=== PATIENT | male | born 1985 | race Caucasian/White ===

== ENCOUNTER 2021-06-20 14:46 | Outpatient (CLI) | payer BC, OTHER, SELFPAY ==
--- NOTE | ~2021-06-20 | CT_ITS ---
EXAMINATION: CT diagnostic chest wo con DATE: 06/20/2021 15:04 INDICATION: Multiple lung nodules, recent history of COVID 19 TECHNIQUE: Computed tomography (CT) of the chest was performed without intravenous contrast. The dose -length product (DLP) was 376.16 mGy-cm. 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 COMPARISON: None FINDINGS: Calcified pulmonary nodules and calcified right hilar lymph nodes are consistent with old g ranulomatous disease. There are patchy groundglass opacities of the lower lobes. No pleural effusion or pneumothorax is identified. No suspicious pulmonary nodule is seen. No pathologically enlarged th oracic lymph nodes are identified. The heart size is normal. IMPRESSION: 1. No suspicious pulmonary nodules identified. 2. Minimal groundglass opacities of the lower lobes, likely resolving COVID 19 pneumonia. Reviewed, dictated and finalized at location F. ING MACHINE OPERATOR
== END 2021-06-20 14:47 ==
LOC: MICIMG 14:49
PROVIDERS: Visit Provider Nurse Practitioner Family
DX: R91.8 Other nonspecific abnormal finding of lung field (principal)
CPT/HCPCS: 71250

== ENCOUNTER 2021-09-22 13:41 | Outpatient (CLI) | payer BC, OTHER, SELFPAY ==
[2021-09-22 16:04] LABS: Toxigenic C. Diff NEGATIVE (NEGATIVE)
== END 2021-09-22 13:42 | disposition home or self-care (01) ==
LOC: ANHLAB 13:44
PROVIDERS: PCP Nurse Practitioner Family; Visit Provider Nurse Practitioner Family
DX: R19.7 Diarrhea, unspecified (principal)
CPT/HCPCS: 87045; 87177; 87209; 87427; 87493

== ENCOUNTER 2021-12-15 02:43 | Day surgery (SDC) | payer BC, OTHER, SELFPAY ==
[2021-11-25 12:12] VITALS: BMI 35.9
--- NOTE | 2021-12-15 08:25 | WPDANESEPPF ---
Anes - Initial Pre Proc Eval Procedure: Operation Date: 12/15/21 11:30 Proposed Procedures p Colonoscopy - Darrion Neal MD Date/Time: 12/15/21 08:25 Surgeon: Darrion Neal MD Pre Op Diagnosis: diarrhea Patient Data Age: 36 Gender: M Height: 1.83 m Weight: 120 kg Allergies Allergy/AdvReac Type Severity Reaction Status Date / Time No Known Allergies Allergy Verified 12/15/21 10:26 Home Medications Medication Instructions Recorded Confirmed Type albuterol sulfate 90 mcg/actuation 2 inh inhalation Q6H PRN Shortness 10/22/21 12/15/21 History breath activated powder inhaler Of Breath metformin 500 mg tablet 500 mg PO BID 10/22/21 12/15/21 History semaglutide 1 mg/dose (2 mg/1.5 1 mg subcut WEEKLY 10/22/21 12/15/21 History mL) subcutaneous pen injector venlafaxine 50 mg tablet 50 mg PO DAILY 10/22/21 12/15/21 History Patient hx anesthesia problems: none Family hx anesthesia problems: none Results Review: All pre-operative results and documents have been reviewed as part of the pre-operative evaluation. [facility] Past Medical History Medical History (Updated 12/15/21 @ 10:31 by Darrion Neal MD) Allergies Anxiety Asthma Diabetes Hyperlipidemia Hypertension Obese Vasectomy planned Family History Family History (Updated 10/22/21 @ 14:59 by An Jarrett CMA) Father Asthma Hypertension Heart disease Social History Social History (Updated 10/22/21 @ 14:59 by An Jarrett CMA) Smoking status: Never smoker Second hand tobacco smoke exposure: No Alcohol intake: never Substance use: never Substance use type: does not use Living arrangements: with family Spiritual care concerns: No Anes - Eval Final PreProcedure Day of Procedure 12/15/21 08:25 Patient weight: obese Heart: regular rate and rhythm Lungs: clear to auscultation Airway: Mallampati scale class II Neurological: alert and oriented Last oral intake: >/= 8 hours ASA classification: III Emergent: no Anesthetic plan: proceed Anesthesia type and monitoring: general GIVS and standard monitoring Results Review: All pre-operative results and documents have been reviewed as part of the pre-operative evaluation. Informed Consent: The patient's anesthetic plan and its attendant risks and benefits were discussed with the patient/family/POA. Questions were solicited and answers provided to the satisfaction of the patient/family/POA.
[2021-12-15 10:27] VITALS: BP 126/85; PULSE 78; RESP 16; TEMP 36.1; O2SAT 99; BMI 35.1
--- NOTE | 2021-12-15 10:29 | PM.IMHP ---
H&P: HPI History of Present Illness Date/Time: 12/15/21 10:29 Chief Complaint: Alteration in bowel habits. Narrative: This is a 36-year-old white female patient who presents for colonoscopy. Patient has diarrhea alternating with constipation. For this reason colonoscopy is advised. Patient denies any bleeding or weight loss. Patient is somewhat overweight anticipates gastric bypass surgery. Desires to have colonoscopy prior to anticipated surgery. Patient's family history is noncontributory. No known family history of colon or rectal disease. There was discussion about possible Crohn's disease. patient has never been told he had Crohn's disease. Review of Systems Review of Systems: Review of systems noncontributory. [facility] Past Medical History Medical History (Updated 12/15/21 @ 10:31 by Darrion Neal MD) Allergies Anxiety Asthma Diabetes Hyperlipidemia Hypertension Obese Vasectomy planned Family History Family History (Updated 10/22/21 @ 14:59 by An Jarrett CMA) Father Asthma Hypertension Heart disease Social History Social History (Updated 10/22/21 @ 14:59 by An Jarrett CMA) Smoking status: Never smoker Second hand tobacco smoke exposure: No Alcohol intake: never Substance use: never Substance use type: does not use Living arrangements: with family Spiritual care concerns: No Meds Home Medications and Allergies Home Medications Medication Instructions Recorded Confirmed Type albuterol sulfate 90 mcg/actuation 2 inh inhalation Q6H PRN Shortness 10/22/21 12/15/21 History breath activated powder inhaler Of Breath metformin 500 mg tablet 500 mg PO BID 10/22/21 12/15/21 History semaglutide 1 mg/dose (2 mg/1.5 1 mg subcut WEEKLY 10/22/21 12/15/21 History mL) subcutaneous pen injector venlafaxine 50 mg tablet 50 mg PO DAILY 10/22/21 12/15/21 History Allergies Allergy/AdvReac Type Severity Reaction Status Date / Time No Known Allergies Allergy Verified 12/15/21 10:26 Exam Narrative: Physical exam reveals patient to be alert. Vital signs stable. HEENT exam is unremarkable. Patient is anicteric. Lungs are clear to auscultation and percussion. Heart is without murmur or extra sounds. Abdominal exam bowel sounds present soft nontender with no organomegaly. Digital external rectal exam is normal. Assessment and Plan Assessment and plan (1) Change in bowel habit: Code(s): R19.4 - Change in bowel habit Status: Acute Assessment and Plan: Patient has alteration in his bowel habit with diarrhea alternating with constipation most consistent with irritable bowel syndrome. Plan is for patient to try FiberCon 2 tabs p.o. b.i.d.. Patient reports this may be recannulated medications he is on diabetic medications including metformin. I have asked him he may wish to discuss this with primary care service all as he can should not hold this medication without their knowledge as his diabetes may become less well controlled. Colonoscopy has been requested to exclude organic disease will be performed as well.
[2021-12-15] MEDS: LACTATED RINGERS 1,000 ML 150 ML IV CONT (10:44)
[2021-12-15 10:46] LABS: Glucose Point of Care 224 mg/dl (65-105)
[2021-12-15 11:27] VITALS: BP 108/70; PULSE 75; RESP 18; O2SAT 96
[2021-12-15 11:37] VITALS: BP 118/75; PULSE 75; RESP 22; O2SAT 100
[2021-12-15 11:47] VITALS: BP 115/75; PULSE 73; RESP 18; O2SAT 97
== END 2021-12-15 11:55 | disposition home or self-care (01) ==
PROVIDERS: PCP Nurse Practitioner Family; Visit Provider Internal Medicine Gastroenterology
PROC: 0DJD8ZZ Inspection of Lower Intestinal Tract, Via Natural or Artificial Opening Endoscopic (ICD-10-PCS; CPT 45378; principal; 2021-12-15 11:30)
DX: R19.4 Change in bowel habit (principal); K64.8 Other hemorrhoids; J45.909 Unspecified asthma, uncomplicated; E11.9 Type 2 diabetes mellitus without complications; E78.5 Hyperlipidemia, unspecified; I10 Essential (primary) hypertension; E66.9 Obesity, unspecified; Z68.35 Body mass index [BMI] 35.0-35.9, adult; Z79.51 Long term (current) use of inhaled steroids; Z79.84 Long term (current) use of oral hypoglycemic drugs; Z79.899 Other long term (current) drug therapy
CPT/HCPCS: 45378; 82948; J2704; J7120

== ENCOUNTER 2022-01-12 14:42 | Outpatient (CLI) | payer BC, OTHER, SELFPAY ==
[2022-01-12 15:09] LABS: Hemoglobin A1C 9.5 % (<5.7)
[2022-01-12 15:13] LABS: Alanine Aminotransferase 216 U/L (6-50); Albumin Level 4.9 g/dL (3.5-5.1); Alkaline Phosphatase 71 U/L (38-126); Anion Gap 12 mmol/L (8-16); Aspartate Amino Transferase 65 U/L (17-59); Bilirubin,Total 0.4 mg/dL (0.2-1.3); Blood Urea Nitrogen 13 mg/dL (9-20); Calcium 9.9 mg/dL (8.4-10.2); Carbon Dioxide 24 mmol/L (22-30); Chloride 99 mmol/L (98-107); Estimated Glomerular Filt Rate > 60; Glucose 313 mg/dL (65-110); Potassium 4.1 mmol/L (3.4-5.0); Sodium 135 mmol/L (137-145)
== END 2022-01-12 14:43 | disposition home or self-care (01) ==
LOC: ANHLAB 14:45
PROVIDERS: PCP Nurse Practitioner Family; Visit Provider Nurse Practitioner Family
DX: E11.9 Type 2 diabetes mellitus without complications (principal)
CPT/HCPCS: 36415; 80053; 83036

== ENCOUNTER 2022-04-16 19:31 | Emergency (ER) | payer BC, OTHER, SELFPAY ==
--- NOTE | 2022-04-16 19:38 | ED.URI ---
HPI - URI/Sore Throat General Stated Complaint: cough Time Seen by Provider: 04/16/22 19:39 Source: patient Mode of arrival: ambulatory Limitations: no limitations History of Present Illness HPI Narrative: Mr. Tyler is a 37-year-old male patient presenting to clinic today with complaints of a cough x2 days. 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 He reports shortly after he developed a cough. He denies any chest pain but that has some mild shortness of breath but he also has a history of asthma. He has been using his albuterol inhaler with some relief. He denies any fever or chills. He denies having a productive cough. He is concerned that he may have a chemical burn in his lungs. MD elicited complaint: cough Related Data Home Medications Medication Instructions Recorded Confirmed albuterol sulfate 90 mcg/actuation 2 inh inhalation Q6H PRN Shortness 10/22/21 12/15/21 breath activated powder inhaler Of Breath metformin 500 mg tablet 500 mg PO BID 10/22/21 12/15/21 glipizide 5 mg tablet mg 04/16/22 metformin 500 mg tablet,extended mg PO 04/16/22 04/16/22 release 24 hr venlafaxine 150 mg mg PO 04/16/22 capsule,extended release 24 hr Allergies Allergy/AdvReac Type Severity Reaction Status Date / Time No Known Allergies Allergy Verified 04/16/22 19:47 Review of Systems Review of Systems: Pertinent positives per HPI. Patient denies any fever, chills, rash, headache, visual changes, dizziness, , shortness of breath, chest pain, palpitations, nausea, vomiting, diarrhea, constipation, abdominal pain, or any urinary issues. [facility] Past Medical History Medical History Allergies Anxiety Asthma Diabetes Hyperlipidemia Hypertension IBS (irritable bowel syndrome) Obese Obesity Vasectomy planned Family History Family History Father Asthma Hypertension Heart disease Social History Social History Smoking status: Never smoker Second hand tobacco smoke exposure: No Alcohol intake: never Substance use: never Substance use type: does not use Spiritual care concerns: No Comments At the time of my signature, I reviewed and agree with the nursing past medical, surgical, social, and family history. There is no relevant family history pertinent to the patient complaint. Exam Narrative: General: Well-developed, well nourished, in no apparent distress Head: Normocephalic, atraumatic Eyes: Pupils equally round and reactive to light bilaterally, EOM intact, sclera and conjunctive clear, no discharge, lids normal Ears: TMs intact and clear, ear canals clear, no drainage, grossly hearing normal. Nose: Nares patent, no discharge, no inflammation, no sinus tenderness. Mouth: Oral pharynx without lesions or masses, good dentition, MMM. Neck: Supple, trachea midline, no enlargement of anterior or posterior cervical nodes, no thyroid masses or goiter palpable. Cardio: Regular rate and rhythm, s1 and s2 normal, no murmur appreciated. Resp: Diminished lung sounds in the bases otherwise clear, no rhonchi, rales, wheezing or rubs Course Course Emergency Course: Portions of this record may have been created with voice recognition software. Level of Care: Express Care Visit Vital Signs Vital signs: Vital signs reviewed MDM - URI/Sore Throat MDM Narrative Medical decision making narrative: At the time of visit patient is resting comfortably on the exam table. Will place patient on a prescription for some prednisone just in case he does have some inflammation in his lungs. Supportive measures were discussed with the patient he voiced understanding of discharge instructions and agrees to treatment plan. Differential Diagnosis Differential diagnos
[2022-04-16 19:41] VITALS: BP 140/85; PULSE 95; RESP 16; TEMP 37; O2SAT 98
== END 2022-04-16 19:49 | disposition home or self-care (01) ==
PROVIDERS: Emergency Provider Nurse Practitioner Family; PCP Nurse Practitioner Family
DX: R05.1 Acute cough (principal); J45.909 Unspecified asthma, uncomplicated; E11.9 Type 2 diabetes mellitus without complications; Z79.84 Long term (current) use of oral hypoglycemic drugs; E78.5 Hyperlipidemia, unspecified; I10 Essential (primary) hypertension; E66.9 Obesity, unspecified; Z68.34 Body mass index [BMI] 34.0-34.9, adult; F41.9 Anxiety disorder, unspecified
CPT/HCPCS: 99213; G0463

== ENCOUNTER 2022-07-01 16:53 | Outpatient (CLI) | payer BC, OTHER, SELFPAY ==
--- NOTE | ~2022-07-01 | MR_ITS ---
EXAMINATION: MR shoulder RT wo con DATE: 07/01/2022 17:57 INDICATION: Right Shoulder pain/weakness . TECHNIQUE: Magnetic resonance imaging (MRI) of the shoulder was performed without intravenous contras t. Sequences included axial PD-weighted FS FSE, coronal oblique PD-weighted FS FSE and T2-weighted FS FSE, and sagittal oblique T2-weighted FS FSE and T1-weighted FSE. COMPARISON: None. FINDINGS: Coracoacromial arch: Minimal anterior downsloping of the type I/II acromion. Mild AC joint hypertrophy. Minimal acromial t ip enthesopathy. Rotator cuff: Mild abnormal signal in the distal supraspinatus and infraspinous tendons at the critical zone. Mild bursal sided fraying. Small focal abnormal signal at the musculotendinous junction in the infraspinat us. The subscapularis and teres minor are intact. Biceps tendon and glenoid labrum: Long head of biceps tendon is intact. Superior labral tear extending anterior to posterior, with exte nsion into a perilabral cyst in the spinal glenoid notch. No concerning muscle atrophy. Fluid: Small subacromial subdeltoid fluid collection. Bones/cartilage: No suspicious focal or diffuse marrow signal IMPRESSION: 1. Mild osseous outlet compromise, with subacromial subdeltoid bursitis. 2. Mild intrasubstance type tear of the infraspinatus at the musculotendinous junction. Mild superior cuff tendinopathy. 2. Extensive SLAP tear. Perilabral cyst in the spinal glenoid notch. Reviewed, dictated and finalized at location K. ELLATION CLERK IMPRESSION: 1. Mild osseous outlet compromise, with subacromial subdeltoid bursitis. 2. Mild intrasubstance type tear of the infraspinatus at the musculotendinous j unction. Mild superior cuff tendinopathy. 2. Extensive SLAP tear. Perilabral cyst in the spinal glenoid notch.
== END 2022-07-01 16:54 ==
LOC: MICIMG 16:55
PROVIDERS: PCP Orthopaedic Surgery; Visit Provider Orthopaedic Surgery
DX: S43.431A Superior glenoid labrum lesion of right shoulder, initial encounter (principal); X58.XXXA Exposure to other specified factors, initial encounter
CPT/HCPCS: 73221

== ENCOUNTER 2023-04-15 09:23 | Outpatient (CLI) | payer BC, OTHER, SELFPAY ==
[2023-04-15 10:28] LABS: Alanine Aminotransferase 83 U/L (6-50); Albumin Level 4.4 g/dL (3.5-5.1); Alkaline Phosphatase 73 U/L (38-126); Anion Gap 9 mmol/L (8-16); Aspartate Amino Transferase 37 U/L (17-59); Bilirubin,Total 0.6 mg/dL (0.2-1.3); Blood Urea Nitrogen 19 mg/dL (9-20); Calcium 9.5 mg/dL (8.4-10.2); Carbon Dioxide 24 mmol/L (22-30); Chloride 105 mmol/L (98-107); Cholesterol 267 mg/dL (0-200); Estimated Glomerular Filt Rate > 60; Glucose 302 mg/dL (65-110); HDL Direct 34 mg/dL; Potassium 4.2 mmol/L (3.4-5.0); Sodium 138 mmol/L (137-145); Triglycerides 413 mg/dL (<150)
[2023-04-15 10:33] LABS: Hemoglobin A1C 9.6 % (<5.7)
[2023-04-15 10:40] LABS: LDL Cholesterol Direct 156 mg/dL
== END 2023-04-15 09:24 | disposition home or self-care (01) ==
LOC: ANHLAB 09:26
PROVIDERS: PCP Orthopaedic Surgery; Visit Provider Nurse Practitioner Family
DX: E78.5 Hyperlipidemia, unspecified (principal); E11.9 Type 2 diabetes mellitus without complications
CPT/HCPCS: 36415; 80053; 80061; 83036

== ENCOUNTER 2024-10-14 10:39 | Outpatient (CLI) | payer BC, SELFPAY ==
--- OUTSIDE RECORDS SUMMARY | 2024-10-14 10:44 | XMS_ITS | Clinical Summary ---
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 Gender Identity Not on file Sexual Orientation Not on file Plan of Treatment Health Maintenance Due Date Last Done Comments Hepatitis C Virus (HCV) Screening 1985 TdaP Immunization 1985 Hepatitis B Immunization (1 of 3 - 19+ 3-dose series) 02/04/2004 Influenza Immunization (#1) 2024 SARS-COV-2 Immunization ( season) 2024 Respiratory Syncytial Virus (RSV) Immunization (Adult) (1 - 1-dose 75+ series) 02/04/2060 Meningococcal Immunization (ACWY) Aged Out No longer eligible based on patient's age to complete this topic Pneumococcal Immunization Combined Aged Out No longer eligible based on patient's age to complete this topic Rotavirus Immunization Aged Out No lo nger eligible based on patient's age to complete this topic
--- OUTSIDE RECORDS SUMMARY | 2024-10-14 10:44 | XMS_ITS | Data Portability ---
Author Organization [facility] Gutier[facility] SIM[facility] Esther Allen Address [address] [place] [address] Assessment No assessment recorded. Plan of Treatment Reminders Order Date Submit Date Provider Last Modified By Organization Details Last Modified Time Details Appointments None recorded. Lab vitamin D, 25-hydroxy , total, serum 2014 015 nikkaer [facility], [address], [address], [place], [address], 5 15:09:29 hepatic function panel, serum 2014 015 francieer [facility], [address], [address], [place], [address], 5 15:09:28 lipid panel, serum 2014 015 albertoer [facility], [address] [place] [address], [address], [place], [address], 5 15:09:29 vitamin D, 25-hydroxy , total, serum 2014 015 NELL [facility], [address] [facility] [address], [place], [address], 5 06:19:03 TSH, serum or plasma 2014 015 anaerson [facility], [address], [place], [address], 15:34:21 Referral None recorded. Procedures None recorded. Surgeries None recorded. Imaging None recorded. Medication Orders Singulair 10 mg tablet 2014 [facility], [address] [place] [address], [address], 5 11:27:36 albuterol sulfate HFA 90 mcg/actuat ion aerosol inhaler 2014 [facility], [address] [place] [address], [address], 5 11:27:37 Advair Diskus 250 mcg-50 mcg/dose powder for inhalation 2014 [facility], [address] [place] [address], [address], 11:27:37 Advair Diskus 250 mcg-50 mcg/dose powder for inhalation 2014 [facility] Not available 11:27:37 lisinopril 20 mg tablet 2014 [facility] [address], [address] [facility], [place], [address], 11:27:36 Advair Diskus 250 mcg-50 mcg/dose powder for inhalation 2014 [facility], [address] [place] [address], [address], 5 16:46:20 albuterol sulfate HFA 90 mcg/actuat ion aerosol inhaler 2014 015 [facility], [address] [place] [address], [address], 5 16:46:22 Singulair 10 mg tablet 2014 [facility], [address] [place] [address], [address], 5 16:46:19 atorvastat in 40 mg tablet 2014 015 INTERFACE [facility], [address] [place] [address], [address], 5 16:46:16 Singulair 10 mg tablet 2014 015 INTERFACE [facility], [address] [place] [address], [address], 5 15:35:07 Asmanex Twisthaler 220 mcg/actuat ion(60 doses) breath activated inhalr 2014 015 INTERFACE [facility], [address] [place] [address], [address], 5 15:35:09 albuterol sulfate HFA 90 mcg/actuat ion aerosol inhaler 2014 015 [facility], [address] [place] [address], [address], 5 15:35:10 Patient TargetsNo targets recorded. Patient Instructions Encounter Date Encounter Id Patient Instructions Last Modified By Organization Details Last Modified Time 03/18/2015 [id number] Patient is finished with his job in 3 days and then will just be in school - he is hoping that his stress level with decrease Patient declined flu vaccine eewig Not available 03/18/2015 11:27:37 Reason for Referral None Reported. Results Created Date Observation Date Name Description Value Unit Range Abnormal Flag Note LastModifiedBy Organization Detail LastModifiedTime 07/16/19 15 07/17/2014 TSH, serum or plasm a TSH 3.570 uIU/m L 0.450- 4.500 Not Available [facility] ([facility]) [address] [facility], [place], [address], 07/17/2014 07:24:43 12/04/19 15 12/04/2014 vitam in D, 25-hy droxy , total , serum vitamin D, 25-hydroxy 16.9 NG/mL 30.0-1 00.0 low VITAM IN D DEFIC IENCY HAS BEEN DEFIN ED BY THE INSTI T[facility] OF MEDIC INE AND AN ENDOC RINE SOCIE TY PRACT ICE GUIDE LINE A LEVEL OF SERUM 25-OH VITAM IN D LESS THAN 20 NG/ML (1,2) . THE ENDOC RINE SOCIE TY WENT ON TO FURTH ER DEFIN E VITAM IN D INSUF FICIE NCY A LEVEL BETWE EN 21 AND 29 NG/ML (2). 1. IOM ([facility] IT[facility] OF MEDIC INE). 2010. DIETA RY REFER ENCE INTAK ES FOR CALCI UM AND D. [facility] DC: [facility] . 2. CHARLES K MF, BINBRIA EY NC, BISCH OFF-F ERRAR I RG, ET AL. EVALU ATION , TREAT MENT, AND PREVE NTION OF VITAM IN D DEFIC IENCY : AN ENDOC RINE SOCIE TY CLINI NILO PRACT ICE GUIDE LINE. JCEM. 2010; 96(7) :1911 -30. Not Available [facility] ([facility]) [address] [facility], [place], [address], 12/04/2014 06:19:03 Result Notes None recorded. 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 - [facility] 5 15:17:42 Upper respiratory infection 53416480 Active BARBI Leahy Attn: Accounting ,[address] [facility], [place], [address] , [facility] - S[facility] 5 15:34:20 Essential hypertension 23042543 Active Kristen Gonzalez PA-C Attn: Accounting ,[address] [facility], [place], [address] , [facility] - [facility] 5 11:27:36 Problem Notes None recorded. Procedures Surgical History Date Name Laterality Status Provider Name and Address Organization Details Recorded Time Appendectomy completed Ezequiel Ward CT - [facility] 07/16/2014 15:09:04 Imaging Results None recorded. Procedure Notes None recorded. Medical Equipment None Reported. Allergies No known drug allergies Medications Name Sig Start Date Stop Date Status Note LastModified by Organization Details LastModified Time Singulair 10 mg tablet Take 1 tablet every day by oral route in the evening. 2014 active Not Available Not Available Not Avai lable atorvastatin 40 mg tablet Take 1 tablet every day by oral route in the evening. 2014 active 340b Not Available Not Available Not Avai lable lisinopril 20 mg tablet Take 1 tablet every day by oral route. 2014 active Not Available Not Available Not Avai lable Advair Diskus 250 mcg-50 mcg/dose powder for inhalation Inhale 1 puff twice a day by inhalation route. 2014 active 340b Not Available Not Available Not Avai lable albuterol sulfate HFA 90 mcg/actuatio n aerosol inhaler Inhale 2 puffs every 4-6 hours by inhalation route as needed. 2014 active Not Available Not Available Not Avai lable Vitamin D2 1,250 mcg (50,000 unit) capsule Take 1 capsule every week by oral route. 2013 active Not Available Not Available Not Avai lable Asmanex Twisthaler 220 mcg/actuatio n(60 doses) breath activated inhalr Inhale 1 puff every day by inhalation route at bedtime. 2014 active Not Available Not Available Not Avai lable Vitals Date Recorded Respiratory rate Body weight Oxygen saturation Oxygen saturation in Arterial blood by Pulse oximetry Body height Body mass index (BMI) Heart rate Body temperature Systolic blood pressure Diastolic blood pressure Provider Name and Address Organization Details Last Updated DateTime 5 20 /min 356817. 82347 g 97 % 97 % 182.88 cm 35.7 kg/m2 96 /min 98.2 [degF] 132 mm[Hg] 92 mm[Hg] Elaine Krishnamurthy LPN [facility] 5 16:35:19 Date Recorded Respiratory rate Body weight Oxygen saturation Oxygen saturation in Arterial blood by Pulse oximetry Body height Body mass index (BMI) Body temperature Heart rate Systolic blood pressure Diastolic blood pressure Provider Name and Address Organization Details Last Updated DateTime 5 20 /min 411048. 387966 g 98 % 98 % 182.88 cm 36.8 kg/m2 97.4 [degF] 65 /min 140 mm[Hg] 94 mm[Hg] [facility] 5 09:29:04 Date Recorded Respiratory rate Oxygen saturation Oxygen saturation in Arterial blood by Pulse oximetry Body weight Heart rate Body mass index (BMI) Body height Body temperature Systolic blood pressure Diastolic blood pressure Provider Name and Address Organization Details Last Updated DateTime 5 20 /min 97 % 97 % 879627. 101606 g 80 /min 36.2 kg/m2 182.88 cm 97.3 [degF] 126 mm[Hg] 84 mm[Hg] Williams Ward [facility] 5 15:09:04 Social History Question Answer Notes LastModified by Organizat ion Details LastModified Time Tobacco Smoking Status Never Smoker Elaine Krishnamurthy LPN [facility], [facility] 12/03/2014 16:35:19 What Is Your Level Of Alcohol Consumption? None Information not available 07/16/2014 What Is Your Level Of Caffeine Consumption? Occasional Information not available 07/16/2014 Are You Currently Employed? Yes Information not available 12/03/2014 What Type Of Diet Are You Following? REGULAR Information not available 12/03/2014 Which Illicit Or Recreational Drugs Have You Used? No Information not available 12/03/2014 Education 2 Year College Informatio n not available 12/03/2014 What Is Your Occupation? [employer] Information not available 12/03/2014 Are There Any Guns Present In Your Home? Yes Information not available 12/03/2014 Hard Of Hearing Or Deaf In One Or Both Ears? No Information not available 12/03/2014 Legally Blind In One Or Both Eyes? No Information no t available 12/03/2014 Live Alone Or With Others? With Others Information not available 07/16/2014 How Many Children Do You Have? 2 Information not available 12/03/2014 Do You Use Protection During Sex? No Information not available 12/03/2014 Seat Belts Used Routinely No Information not available 12/03/2014 Are You Sexually Active? Yes Information not available 12/03/2014 Smoke Alarm In Home Yes Information not available 12/03/2014 Are You Passively Exposed To Smoke? No Information no t available 12/03/2014 General Stress Level Low Information not available 12/03/2014 Do You Use Sunscreen Routinely? No Information not available 12/03/2014 Sex: Unknown Functional Status Question Answer Note LastModified by Organization D etails LastModified Time Are you able to care for yourself? Yes Information not available 07/16/2014 What is your exercise level? Moderate Information not available 12/03/2014 Mental Status None recorded. Family History Relationship Description Onset Age of this Age Resolved Age Notes LastModified by Organization Details LastModified Time Mother Alive [email or web address] Not available 1 09:29:05 Father Alive [email or web address] Not available 1 09:29:05 Medical History Condition Response Acid Reflux (GERD) Y Asthma Y Allergies Y Past Encounters Encounter ID Performer Location Encounter Start Date Encounter Closed Date Diagnosis/Indication Diagnosis SNOMED-CT Code Diagnosis ICD10 Code Diagnosis Note [id number] Christiana Pleitez NP-C Matilda clinton [address] [place] [address] 07/16/2014 15:03:15 07/16/2014 15:35:05 Hyperlipidemia 15584193 Reinforced need to start Atorvastat in based on LDL 203 Disorder of vitamin D 288301043 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 Asthma 730290493 Obesity 429726414 Upper resp iratory infection 01358824 Offered Flonase, but patient prefers to continue OTC tx and will call office if no improvemen t in 1 week [id number] MD Brown Alexander (Adult Med) [address] [place] [address] 12/03/2014 16:14:24 12/03/2014 16:46:43 Asthma 866171945 Hyperlipidemia 23143048 Disorder of vitamin D 682114844 Abnormal b lood pressure 61428520 [id number] MD Brown Alexander (Adult Med) [address] [place] [phone] 03/18/2015 09:01:08 03/18/2015 09:43:10 Hyperlipidemia 96401764 E78.5 Disorder of vitamin D 38 5857154 E55.9 Asthma 860540197 J45.90 9 Essential hypertension 79429908 I10 RTC in 3 weeks - patient will return once he has insurance for a BP check - he will begin medication States that he is very stressed at home He has a BP cuff at home and will monitor his BP Obesity 867225195 E66.9 States at home his scale says that he has lost 3lbs since his last visit - he currently is wearing steel toed boots and heavy clothing for work Health Concerns Section Related Observation LastModified by Organization Detai ls LastModified Time None Recorded Concern Status LastModified by Organization Details LastModified Time None Recorded Advance Directives Directive None Recorded Payers Encounter Date Sequence Insurance Name Policy Number Policy Domingo Covered Member ID Domingo Member ID Guarantor Name 12/03/2014 SLIDING FEE SCHEDULE - DISCOUNT Erick Tyler 03/18/2015 SLIDING FEE SCHEDULE - DISCOUNT Erick Tyler
--- OUTSIDE RECORDS SUMMARY | 2024-10-14 10:44 | XMS_ITS | Referral Summary ---
Author Organization [facility] Address [address] [place] [address] Care Team Providers Care Leadlighter Name Role Phone Tisha Koch Lizbeth COLORED LEATHER SETTER Primary Care Provider + Allergies No known active allergies Medications venlafaxine XR (EFFEXOR-XR) 150 mg 24 hr capsuleIndicatio ns:Generalized anxiety disorder Take 1 capsule (150 mg total) by mouth daily 30 capsule 1 Active Additional Information Patient taking differently:150 mg oralDaily before breakfast, Indications: Anxiety with Depression, Informant: Self, Reported on 07/22/2022 metFORMIN XR (GLUCOPHAGE XR) 500 mg 24 hr tabletIndication s:type 2 diabetes mellitus Take 500 mg by mouth 2 (two) times a day 2 Active semaglutide (Ozempic) 1 mg/dose (4 mg/3 mL) pen injector injectionIndicat ions:type 2 diabetes mellitus Inject 1 mg under the skin once a week Mondays Active albuterol HFA (PROVENTIL HFA,VENTOLIN HFA,PROAIR HFA) 90 mcg/actuation inhalerIndicatio ns:Mild intermittent asthma without complication Inhale 2 puffs every 4 hours as needed for wheezing 8.5 g 2 Active Additional Information Patient taking differently: 2 puff inhalation Every 4 hours PRN, wheezing, shortness of breath, Inhale 2 puffs every 4 hours as needed for wheezing, Informant: Self, Reported on 07/22/2022 glipiZIDE (GLUCOTROL) 5 mg tabletIndication s:type 2 diabetes mellitus Take 5 mg by mouth 2 (two) times a day before breakfast and lunch 3 Active meloxicam (MOBIC) 15 mg tablet Take 1 tablet (15 mg total) by mouth daily 30 tablet 1 3 Active Active Problems Problem Noted Date Diagnosed Date Tear of right glenoid labrum 07/21/2022 Overview (07/21/2022): Added automatically from request for surgery [id number] Biceps tendinitis of right upper extremity 07/21 Overview (07/21/2022): Added automatically from request for surgery [id number] Primary hypertension 11/20/2021 Type 2 diabetes mellitus wit hout complication, without long-term current use of insulin 11/20/2021 Morbid obesity 11/20/2021 Other specified anxiety disorders 11/20/2021 BMI 35.0-35.9,adult 10/09/2021 Uncontrolled type 2 diabetes mellitus with hyper glycemia 12/19/2019 Assessment & Plan (01/30/2020 4:29 PM CDT): Overall Condition Chronic Condition: Uncontrolled. Treatment: New Medication: Cont. metformin. start Invokana. Follow up in 3 months Assessment & Plan (12/19/2019 3:25 PM CDT): Overall Condition New Diagnosis. Treatment: New Medication: Start Metformin 1000mg. half tablet BID for 1 week, then go up to full pill. , Lab: Diabetic Panel. , Referral: Optho and [employer] and Recommended Therapeutic Lifestyle Modification Follow up in 1 month Encounter for annual health examination 12/19/19 20 Anxiety with somatization 08/28/2019 Mixed dyslipidemia 08/28/2019 Abnormal liver enzymes 12/23/2018 Asthma complicating , antepartum 2018 Excess or deficiency of vitamin D 12/23/2018 Hyperlipidemia 12/23/2018 Generalized anxiety disorder 04/22/2017 Mild intermittent asthma without complication New daily persistent headache 04/22/2017 Arthralgia of hip 05/27/2009 Resolved Problems Problem Noted Date Diagnosed Date Resolved Date Class 2 severe obesity due t o excess calories with serious comorbidity and body mass index (BMI) of 36.0 to 36.9 in adult 05/03/2017 Assessment & Plan (01/30/2020 4:31 PM CDT): Overall Condition Chronic Condition: Uncontrolled. Treatment: New Medication: Restart Phentermine. Follow up in 3 months Social History Tobacco Use Types Packs/Day Years Used Date Smoking Tobacco: Never Smokeless Tobacco: Never Alcohol Use Standard Drinks/Week Comments Not Currently 0 (1 standard drink = 0.6 oz pur e alcohol) AUDIT-C Answer Date Recorded Q1: How often do you have a drink containing alc ohol? 2-4 times a month 08/11/2022 Q2: How many drinks containi ng alcohol do you have on a typical day when you are drinking? 1 or 2 08/11/2022 Q3: How often do you have si x or more drinks on one occasion? Never 08/11/2022 PHQ-2 Answer Date Recorded PHQ-2 Total Score (If total score is 3 or more points, staff should administer the PHQ-9) 0 12/19/2019 Personal Safety Answer Date Recorded Getting School Help Needed Denies 07/31 Sex and Gender Information Value Date Recorded Sex Assigned at Not on file Legal Sex Male 4:34 AM DIVERSIFIED CROPS SUPERVISOR Gender Identity Male 09/12/2021 3:59 PM CDT Sexual Orientation Straight 09/12/2021 3: 59 PM CDT Last Filed Vital Signs Vital Sign Reading Time Taken Comments Blood Pressure 144/124 08/11/2022 9:45 AM DIVERSIFIED CROPS SUPERVISOR pt moving during measurement, retaken 137/88 Pulse 76 08/11/2022 9:45 AM DIVERSIFIED CROPS SUPERVISOR Temperature 36.4 C (97.5 F) 08/11/2022 9:25 AM DIVERSIFIED CROPS SUPERVISOR Respiratory Rate 17 08/11/2022 9:45 AM DIVERSIFIED CROPS SUPERVISOR Oxygen Saturation 93% 08/11/2022 9:4 5 AM DIVERSIFIED CROPS SUPERVISOR Inhaled Oxygen Concentration - - Weight 120.4 kg (265 lb 6.4 oz) 08/11/2022 5:46 AM DIVERSIFIED CROPS SUPERVISOR Height 182.9 cm (6' 0.01 ) 08/11/2022 5 :46 AM DIVERSIFIED CROPS SUPERVISOR Body Mass Index 35.99 08/11/2022 5:46 AM DIVERSIFIED CROPS SUPERVISOR Plan of Treatment Not on file Medical Devices Implanted Type Area Dry Janitor Device Identifier Shelf Expiration Date Model / Serial / Lot [employer] Pushlock 2.9mm 15.5mm Anderson Suture Biocomposite Sterile [id number] - [id number] Implanted:Qty: 1 on 08/11/2022 by Domingo Wise MD at [facility] Right: Shoulder [employer] 04/06/2026 AR-1923BC / / [id number] [employer] Pushlock 2.9mm 15.5mm Anderson Suture Biocomposite Sterile [id number] - [id number] Implanted:Qty: 1 on 08/11/2022 by Domingo Wise MD at [facility] [place] Right: Shoulder [employer] 04/06/2026 AR-1923BC / / [id number] [employer] Pushlock 2.9mm 15.5mm Anderson Suture Biocomposite Sterile Ar-1923bc - [id number] Implanted:Qty: 1 on 08/11/2022 by Domingo Wise MD at [facility] [place] Right: Shoulder [employer] 04/06/2026 AR-1923BC / / [id number] Procedures Procedure Name Priority Date/Time Associated Diagnosis Comments HEMOGLOBIN A1C Routine 08/10/2022 9:28 AM DIVERSIFIED CROPS SUPERVISOR Right shoulder pain, unspecified chronicity EGFR Add On 04/17/2022 4:45 PM DIVERSIFIED CROPS SUPERVISOR LIPID PANEL Routine 10/09/2021 5:56 PM CDT Morbid obesity (HCC) Type 2 diabetes mellitus without complication, without long-term current use of insulin (HCC) Primary hypertension Mixed hyperlipidemia HEPATITIS PANEL, ACUTE Routine 08/07/2016 10:22 AM DIVERSIFIED CROPS SUPERVISOR from Last 3 Months or Most Recently Relevant to Health Maintenance Results * (ABNORMAL) Hemoglobin A1c (08/10/2022 9:28 AM DIVERSIFIED CROPS SUPERVISOR) Hgb A1C 7.4(H) 4.0 - 5.6 % [facility] Comment:Testing performed by : [facility], [address] [place] [address], [place]., [address] Estimated Average Glucose 166 mg/dL [facility] Comment: The ADA recommends reporting an estimated Average Glucose (eAG) with all Hemoglobin A1c results using the equation derived from a study of 507 normal and diabetic adults. Minority populations were underrepresented and children were not included. (Diabetes Care 31:7623-2887, 2008). The eAG is not equivalent to a fasting glucose. Testing performed by: [address] [address] Blood 08/10/2022 9:28 AM DIVERSIFIED CROPS SUPERVISOR 08/10/2022 9:43 AM DIVERSIFIED CROPS SUPERVISOR us Domingo Wise MD LAB BLOOD ORDERABLES Final Result [id number] [facility] [place] [address] * eGFR (04/17/2022 4:45 PM DIVERSIFIED CROPS SUPERVISOR) eGFR 80 mL/min/1. 73 m2 [facility] Comment: Interpretive Data Reference Interval Normal >/= 90 mL/min/1.73m2 Mildly decreased* 60 - 89 mL/min/1.73m2 Mildly to moderately decreased 45 - 59 mL/min/1.73m2 Moderately to severely decreased 30 - 44 mL/min/1.73m2 Severely decreased 15 - 29 mL/min/1.73m2 Kidney Failure < 15 mL/min/1.73m2 *Relative to young adult level Estimated glomerular filtration rate is determined by the 2020 CKD-EPI equation recommended by the National Kidney Foundation (A Unifying Approach to GFR Estimation: Recommendations of the NKF-ASK Task Force on Reassessing the Inclusion of Race in Diagnosing Kidney Disease, JASN 202). The CKD-EPI equation should not be used for patients with unstable renal function and has not been validated in children and those over 70. Current interpretive data was last reviewed 2021. Testing performed by: [facility], [address] [place] [address]., [address] Blood 04/17/2022 4:45 PM DIVERSIFIED CROPS SUPERVISOR 04/17/2022 5:26 PM DIVERSIFIED CROPS SUPERVISOR us Tea GAVIN LAB BLOOD ORDERABLES Final Result [facility] [address] [facility] [place] [address] * (ABNORMAL) Lipid panel (10/09/2021 5:56 PM CDT) Cholesterol 283(H) 30 - 199 mg/dL [facility] Comment: Interpretive Data Ages < or = 19 years Acceptable: <170 mg/dL Borderline high: 170-199 mg/dL High: >or= 200 mg/dL Ages > or = 20 years Desirable: <200 mg/dL Borderline high: 200-239 mg/dL High: >or= 240 mg/dL Literature References: 1. Expert Panel on Integrated Guidelines for Cardiovascular Health and Risk Reduction in Children and Adolescents. Pediatrics 2011;128:S213 2. NCEP Expert Panel. Circulation 2004;110:227 Current Interpretive Data was last revised on 2018. Testing performed by: [address] [address] Triglycerides 603(H) <=149 mg/dL [facility] Comment: Interpretive Data Ages < or = 9 years Acceptable: <75 mg/dL Borderline high: 75-99 mg/dL High: >or= 100 mg/dL Ages 10 to 20 years Acceptable: <90 mg/dL Borderline high: 90-129 mg/dL High: >or= 130 mg/dL Ages > or = 20 years Desirable: <150 mg/dL Borderline high: 150-199 mg/dL High: 200-499 mg/dL Very high: >or= 499 mg/dL Literature References: 1. Expert Panel on Integrated Guidelines for Cardiovascular Health and Risk Reduction in Children and Adolescents. Pediatrics 2011;128:S213 2. NCEP Expert Panel. Circulation 2004;110:227 Current Interpretive Data was last revised on 2018. Testing performed by: [address] [address] HDL 37(L) >=40 mg/dL [facility] Comment: Interpretive Data Ages < or = 19 years Acceptable: >45 mg/dL Borderline low: 40-45 mg/dL Low: <40 mg/dL Ages > or = 20 years Desirable: >or= 60 mg/dL Low: <40 mg/dL Literature References: 1. Expert Panel on Integrated Guidelines for Cardiovascular Health and Risk Reduction in Children and Adolescents. Pediatrics 2011;128:S213 2. NCEP Expert Panel. Circulation 2004;110:227 Current Interpretive Data was last revised on 2018. Testing performed by: [address] [address] LDL, calculated See Comment <=129 mg/dL [facility] Comment: Unable to calculate due to elevated Triglycerides. Interpretive Data Ages < or = 19 years Acceptable: <110 mg/dL Borderline high: 110-129 mg/dL High: >or= 130 mg/dL Ages > or = 20 years Optimal: <100 mg/dL Near optimal: 100-129 mg/dL Borderline high: 130-159 mg/dL High: >160 mg/dL Literature References: 1. Expert Panel on Integrated Guidelines for Cardiovascular Health and Risk Reduction in Children and Adolescents. Pediatrics 2011;128:S213 2. NCEP Expert Panel. Circulation 2004;110:227 Current Interpretive Data was last revised on 2018. Testing performed by: [address] [address] Non-HDL Cholesterol 246 mg/dL [facility] Comment: Interpretive Data Ages < or = 19 years Acceptable: <120 mg/dL Borderline high: 120-144 mg/dL High: >145 mg/dL Ages > or = 20 years When triglycerides are >200 mg/dL, Non-HDL cholesterol is a secondary target of therapy with treatment goals that are 30 mg/dL greater than the LDL cholesterol target. Literature References: 1. Expert Panel on Integrated Guidelines for Cardiovascular Health and Risk Reduction in Children and Adolescents. Pediatrics 2011;128:S213 2. NCEP Expert Panel. Circulation 2004;110:227 Current Interpretive Data was last revised on 2018. Testing performed by: [address] [address] Chol/HDL ratio 8 [facility] Comment:Testing performed by : [address] [address] Blood 10/09/2021 5:56 PM CDT 10/09/2021 6:01 PM CDT Guanako Bass COLORED LEATHER SETTER LAB BLOOD ORDERABLES Final Result [facility] [id number] [facility] [place] [address] * Hepatitis panel, acute (08/07/2016 10:22 AM DIVERSIFIED CROPS SUPERVISOR) HepBsAg NONREACT NONREACTIVE 08/07/2016 2:06 PM DIVERSIFIED CROPS SUPERVISOR [employer] HISTORICAL RESULTS Comment: Siemens CentaurXP using SRUTHI (chemiluminescent immunoassay) technology. NONREACTIVE: IgM antibodies to Hepatitis B Surface antigen not detected. REACTIVE: IgM antibodies to Hepatitis B Surface antigen detected. Reactive results will be confirmed by neutralization testing. HBsAb qn < 3.10 mIU/mL 08/07/2016 1:55 PM DIVERSIFIED CROPS SUPERVISOR [employer] HISTORICAL RESULTS Comment: Siemens CentaurXP using SRUTHI (chemiluminescent immunoassay) technology. 9.99 IU/L or less.....NONREACTIVE: IgM antibodies to Hepatitis B Surface antibody are not detected. 10.00 IU/L or greater..REACTIVE: IgM antibodies to Hepatitis B Surface antibody are detected. Hep B core IgM NONREACT NONREACTIVE 2:34 PM DIVERSIFIED CROPS SUPERVISOR [employer] HISTORICAL RESULTS Comment: Siemens CentaurXP using SRUTHI (chemiluminescent immunoassay) technology. NONREACTIVE: IgM antibodies to Hepatitis B Core antigen not detected. EQUIVOCAL: IgM antibodies to Hepatitis B Core antigen may or may not be present. Obtain a new specimen and retest. REACTIVE: IgM antibodies to Hepatitis B Core antigen detected. Hep A IgM NONREACT NONREACTIVE 08/07/2016 2:35 PM DIVERSIFIED CROPS SUPERVISOR [employer] HISTORICAL RESULTS Comment: Siemens CentaurXP using SRUTHI (chemiluminescent immunoassay) technology. NONREACTIVE: IgM antibodies to Hepatitis A not detected. This does not exclude possibility of exposure to Hepatitis A or early acute infection. EQUIVOCAL:IgM antibodies to Hepatitis A may or may not be present. Suggest recollection and retest. REACTIVE: Antibodies to Hepatitis A detected. Hep C Ab NONREACT NONREACTIVE 08/07/2016 2:33 PM DIVERSIFIED CROPS SUPERVISOR [employer] HISTORICAL RESULTS Comment: Siemens CentaurXP using SRUTHI (chemiluminescent immunoassay) technology. NONREACTIVE: Antibodies to Hepatitis C not detected. This does not exclude early acute Hepatitis C infection, possibility of exposure to Hepatitis C, antibodies below detection limit, or to lack of antibody reactivity to the antigen used in this assay. EQUIVOCAL: Antibodies to Hepatitis C may or may not be present. Sample to be confirmed by real-time PCR method. REACTIVE: Antibodies to Hepatitis C detected. 08/07/2016 10:2 2 AM DIVERSIFIED CROPS SUPERVISOR 08/07/2016 10:29 AM DIVERSIFIED CROPS SUPERVISOR Narrative [facility] - 08/07/2016 2:33 PM DIVERSIFIED CROPS SUPERVISOR Tejas May MD LAB MICROBIOLOGY - [facility] L ORDERABLES Final Result [facility] HISTORICAL RESULTS from Last 3 Months or Most Recently Relevant to Health Maintenance Insurance [id number] (Home) [address] [id number] [facility] [employer] Address: [facility] [id number] [place] [id number] [facility] [employer] Address: [facility] [id number] [place] [id number] [employer] [place] Member Subscriber Plan / Payer (Ef fective 2023-Present) Name:Jayson Arron Teresa Relation to Subscriber:Self Name:Arron Tyler Payer ID:[id number] (NAIC) Type: OTHER Address: [address] [place] [id number] [employer] [place] Member Subscriber Plan / Payer (Ef fective 2020-Present) Name:JaysonErickua Teresa Relation to Subscriber:Self Name:Ayleen Tylershalisson Moore Payer ID:[id number] (NAIC) Type: OTHER Address: [phone] [facility] [employer] Address: [address] [place] [address] Care Teams Leadlighter Relationship Specialty Start Date End Date Tisha Koch NP PCP - General Nurse Practitioner 03/30/22
--- OUTSIDE RECORDS SUMMARY | 2024-10-14 10:44 | XMS_ITS | Clinical Summary ---
Author Organization [facility] at the [facility] Building Address [address] [place] [id number] Care Team Providers Care Manager Of Patient Name Role Phone Tisha Koch [employer] ARCHIT[employer] Primary Care Provider + Allergies No known [...] (07/21/2022): Added automatically from request for surgery [id number] Biceps tendinitis of right upper extremity 07/21 Overview (07/21/2022): Added automatically from request for surgery [id number] Primary hypertension 11/20/2021 Type 2 diabetes mellitus [...] Lab: Diabetic Panel. , Referral: Optho and Staff Nuclear Medicine Technologist and Recommended Therapeutic Lifestyle Modification Follow up [...] Restart Phentermine. Follow up in 3 months Surgical History Surgery Date Site/Laterality Comments APPENDECTOMY 06/07/2008 - 06/06/2009 Appendectomy KNEE ARTHROSCOPY 06/07/2016 - 06/06/2017 REFRACTIVE SURGERY 06/07/2021 - 06/06/2022 COLONOSCOPY 06/07/2021 - 06/06/2022 Medical History Medical History Date Comments Asthma Asthma; Comments : APO 04/24/2016 - Hypertension Hypertension Hx Other Medical Hyperlipidemia; Comments: APO 04/24/2016 - Anxiety Diabetes mellitus (HCC) Family History Medical History Relation Name Comments Alcohol abuse Father Samm Asthma Father Samm Drug abuse Father Samm Heart disease Father Samm Heart attack Maternal Grandfather Bobby Heart disease Maternal Grandfather Bobby Anesthesia problems Neg Hx Malig Hypertension Neg Hx Malig Hyperthermia Neg Hx Pseudochol deficiency Neg Hx Relation Name Status Comments Father Samm Alive Maternal Grandfather Bobby Mother Alive Social History Tobacco Use Types Packs/Day Years [...] on file Legal Sex Male 4:34 AM PARCEL WRAPPER Gender Identity Male 09/12/2021 3:59 PM CDT Sexual Orientation Straight 09/12/2021 3: 59 PM CDT Obstetrics History Last Filed Vital Signs Vital Sign Reading Time Taken Comments Blood Pressure 144/124 08/11/2022 9:45 AM PARCEL WRAPPER pt moving during measurement, retaken 137/88 Pulse 76 08/11/2022 9:45 AM PARCEL WRAPPER Temperature 36.4 C (97.5 F) 08/11/2022 9:25 AM PARCEL WRAPPER Respiratory Rate 17 08/11/2022 9:45 AM PARCEL WRAPPER Oxygen Saturation 93% 08/11/2022 9:4 5 AM PARCEL WRAPPER Inhaled Oxygen Concentration - - Weight 120.4 kg (265 lb 6.4 oz) 08/11/2022 5:46 AM PARCEL WRAPPER Height 182.9 cm (6' 0.01 ) 08/11/2022 5 :46 AM PARCEL WRAPPER Body Mass Index 35.99 08/11/2022 5:46 AM PARCEL WRAPPER Plan of Treatment Health Maintenance Due Date Last Done Comments Albumin Creatinine Ratio, Urine 1985 Dilated Eye Exam 1985 Varicella Vaccines (1 of 2 - 13+ 2-dose series) 1998 Hepatitis B Screening 2003 Pneumococcal vaccine <65 (1 of 2 - PCV) 02/04/2004 Depression Screening 12/18/2020 12/19/2019 Foot Exam 12/18/2020 12/19/2019 Regular Well Visit/Exam 18-64 12/18/2020 12/19/2019, 12/23/2018 Lipid Panel 10/09/2022 10/09/2021, 12/05, 08/07/2016, Additional history exists Hemoglobin A1C 02/10/2023 08/10/2022, 05/0 10/2021, 12/19/2019, Additional history exists eGFR 04/17/2023 04/17/2022, 04/07, 01/21/2022, Additional history exists Covid-19 Vaccine ( - season) 2024 08/12/2020 Influenza Vaccine (Season Ended) 2025 DTaP/Tdap/Td Vaccine (3 - Td or Tdap) 04/02/2031 04/02/2021, 12/03/2017 Hepatitis C Screening Completed 08/07/2016 HPV Vaccines Aged Out No longer eligi ble based on patient's age to complete this topic Medical Devices Implanted Type Area Icu Manager Device Identifier Shelf Expiration Date Model / Serial / Lot [employer] Pushlock 2.9mm 15.5mm [place] Suture Biocomposite Sterile [id number] - [id number] Implanted:Qty: 1 on 08/11/2022 by Domingo Wise MD at [facility] Right: Shoulder [employer] 04/06/2026 AR-1923BC / / [id number] [employer] Pushlock 2.9mm 15.5mm [employer] Suture Biocomposite Sterile Ar-1923bc - [id number] Implanted:Qty: 1 on 08/11/2022 by Domingo Wise MD at [facility] Right: Shoulder [employer] 04/06/2026 AR-1923BC / / [id number] [employer] Pushlock 2.9mm 15.5mm [place] Suture Biocomposite Sterile Ar-1923bc - [id number] Implanted:Qty: 1 on 08/11/2022 by Domingo Wise MD at [facility] [place] Right: Shoulder [employer] 04/06/2026 AR-1923BC / / [id number] Procedures Procedure Name Priority Date/Time Associated Diagnosis Comments HEMOGLOBIN A1C Routine 08/10/2022 9:28 AM PARCEL WRAPPER Right shoulder pain, unspecified chronicity EGFR Add On 04/17/2022 4:45 PM PARCEL WRAPPER LIPID PANEL Routine 10/09/2021 5:56 PM CDT Morbid obesity (HCC) Type 2 diabetes mellitus without complication, without long-term current use of insulin (HCC) Primary hypertension Mixed hyperlipidemia HEPATITIS PANEL, ACUTE Routine 08/07/2016 10:22 AM PARCEL WRAPPER from Last 3 Months or Most Recently Relevant to Health Maintenance Results * (ABNORMAL) Hemoglobin A1c (08/10/2022 9:28 AM PARCEL WRAPPER) Hgb A1C 7.4(H) 4.0 - 5.6 % [facility] Comment:Testing performed by : [facility], [address] [place] [address], [place]., [address] Estimated Average Glucose 166 mg/dL [facility] Comment: The ADA recommends reporting an estimated Average Glucose (eAG) with all Hemoglobin A1c results using the equation derived from a study of 507 normal and diabetic adults. Minority populations were underrepresented and children were not included. (Diabetes Care 31:8023-7984, 2008). The eAG is not equivalent to a fasting glucose. Testing performed by: [facility], [address] [place] [address]., [address] Blood 08/10/2022 9:28 AM PARCEL WRAPPER 08/10/2022 9:43 AM PARCEL WRAPPER us Domingo Wise MD LAB BLOOD ORDERABLES Final Result [facility] [address] [facility] Department [place] [address] * eGFR (04/17/2022 4:45 PM PARCEL WRAPPER) eGFR 80 mL/min/1. 73 m2 [facility] [...] of Race in Diagnosing Kidney Disease, JASN 2020). The CKD-EPI equation should not be used for patients with unstable renal function and has not been validated in children and those over 70. Current interpretive data was last reviewed 2021. Testing performed by: [facility], [address] [place] [address]., [address] Blood 04/17/2022 4:45 PM PARCEL WRAPPER 04/17/2022 5:26 PM PARCEL WRAPPER us [employer] [facility] LAB BLOOD ORDERABLES Final Result [facility] [address] [facility] Department [place] [address] * (ABNORMAL) Lipid panel (10/09/2021 5:56 PM [...] last revised on 2018. Testing performed by: [address] [address] Triglycerides 603(H) <=149 mg/dL [facility] Comment: Interpretive [...] last revised on 2018. Testing performed by: [address] [address] HDL 37(L) >=40 mg/dL [facility] Comment: Interpretive [...] last revised on 2018. Testing performed by: [address] [address] LDL, calculated See Comment <=129 mg/dL [facility] Comment: Unable to calculate due to elevated [...] last revised on 2018. Testing performed by: [address] [address] Non-HDL Cholesterol 246 mg/dL [facility] Comment: Interpretive [...] last revised on 2018. Testing performed by: [address] [address] Chol/HDL ratio 8 [facility] Comment:Testing performed by : [address] [address] Blood 10/09/2021 5:56 PM CDT 10/09/2021 6:01 PM CDT [employer] ARCHITECT LAB BLOOD ORDERABLES Final Result [facility] [address] [facility] Department [place] [address] * Hepatitis panel, acute (08/07/2016 10:22 AM PARCEL WRAPPER) HepBsAg NONREACT NONREACTIVE 08/07/2016 2:06 PM PARCEL WRAPPER [employer] HISTORICAL RESULTS Comment: Siemens CentaurXP using SRUTHI (chemiluminescent immunoassay) technology. NONREACTIVE: IgM antibodies to Hepatitis B Surface antigen not detected. REACTIVE: IgM antibodies to Hepatitis B Surface antigen detected. Reactive results will be confirmed by neutralization testing. HBsAb qn < 3.10 mIU/mL 08/07/2016 1:55 PM PARCEL WRAPPER [employer] HISTORICAL RESULTS Comment: Siemens CentaurXP using SRUTHI (chemiluminescent immunoassay) technology. 9.99 IU/L or less.....NONREACTIVE: IgM antibodies to Hepatitis B Surface antibody are not detected. 10.00 IU/L or greater..REACTIVE: IgM antibodies to Hepatitis B Surface antibody are detected. Hep B core IgM NONREACT NONREACTIVE 7 2:34 PM PARCEL WRAPPER [employer] HISTORICAL RESULTS Comment: Siemens CentaurXP using SRUTHI (chemiluminescent immunoassay) technology. NONREACTIVE: IgM antibodies to Hepatitis B Core antigen not detected. EQUIVOCAL: IgM antibodies to Hepatitis B Core antigen may or may not be present. Obtain a new specimen and retest. REACTIVE: IgM antibodies to Hepatitis B Core antigen detected. Hep A IgM NONREACT NONREACTIVE 08/07/2016 2:35 PM PARCEL WRAPPER [employer] HISTORICAL RESULTS Comment: Siemens CentaurXP using SRUTHI (chemiluminescent immunoassay) technology. NONREACTIVE: IgM antibodies to Hepatitis A not detected. This does not exclude possibility of exposure to Hepatitis A or early acute infection. EQUIVOCAL:IgM antibodies to Hepatitis A may or may not be present. Suggest recollection and retest. REACTIVE: Antibodies to Hepatitis A detected. Hep C Ab NONREACT NONREACTIVE 08/07/2016 2:33 PM PARCEL WRAPPER [employer] HISTORICAL RESULTS Comment: Siemens CentaurXP using SRUTHI [...] Hepatitis C detected. 08/07/2016 10:2 2 AM PARCEL WRAPPER 08/07/2016 10:29 AM PARCEL WRAPPER Narrative [facility]ULTS - 08/07/2016 2:33 PM PARCEL WRAPPER Tejas May MD LAB MICROBIOLOGY - [facility] L ORDERABLES Final Result [facility] HISTORICAL RESULTS from Last 3 Months or Most Recently Relevant to Health Maintenance Insurance [id number] (Home) [address] [employer] Address: [facility] [address] [place] [address] [facility] Member Subscriber Plan / Payer (Ef fective 2023-Present) Name:Ayleen Tylershua Teresa Relation to Subscriber:Self Name:Arron Tyler Payer ID:[id number] (NAIC) Type: OTHER Address: [id number] [employer] [place] Member Subscriber Plan / Payer ( fective 2020-Present) Name:Arron Tyler Relation to Subscriber:Self Name:Arron Tyler Payer ID:[id number] (NAIC) Type: OTHER Address: [phone] Care Teams Manager Of Patient Relationship Specialty Start Date End Date Tisha Koch NP PCP - General Nurse Practitioner 03/30/22
--- OUTSIDE RECORDS SUMMARY | 2024-10-14 10:45 | XMS_ITS | Data Portability ---
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 Plan of Treatment Reminders Order Date Submit Date Provider Last Modified By Organization Details Last Modified Time Details Appointments None recorded. Lab glycohemogl obin, total, blood 2022 023 [facility] (Lab), [address] [place], [address], 3 12:59:55 CMP, serum or plasma 2022 023 [facility] (Lab), [address] [place], [address], 3 12:59:55 lipid panel, serum 2022 023 [facility] (Lab), [address] [place], [address], 3 12:59:55 BMP, serum or plasma [address] (Lab), [address] [place], [address], 3 11:12:35 glycohemogl obin, total, blood [address] (Lab), [address] [place], [address], 3 11:12:35 Referral None recorded. Procedures None recorded. Surgeries None recorded. Imaging None recorded. Medication Orders albuterol sulfate HFA 90 mcg/actuati on aerosol inhaler [address] [facility] #86593, [address], [place], [place], [id number], 3 16:57:15 alprazolam 0.25 mg tablet [address] [facility] #29415, [address], [place], [place], [id number], 3 16:57:18 lisinopril 5 mg tablet [address] [facility] #24719, [address], [place], [place], [id number], 3 16:57:18 glipizide 5 mg tablet [address] [facility] #63620, [address], [place], [place], [id number], 3 16:57:15 metformin ER 500 mg tablet,exte nded release [address] [facility] #48759, [address], [place], [place], [id number], 3 16:57:18 gabapentin 300 mg capsule [address] [facility] [facility] #37196, [address] [place], [place], [id number], 3 17:06:22 Patient TargetsNo targets recorded. Patient Instructions Encounter Date Encounter Id Patient Instructions Last Modified By Organization Details Last Modified Time 09/22/2022 [id number] FU in 1 year for wellness. Not available 09/22/2022 17:52:11 04/14/2023 [id number] FU in September for wellness. 3 mo fu med check, anxiety, asthma, htn, lipid, type II dm, vit d def. Not available 04/14/2023 17:40:13 Reason for Referral None Reported. Results Created Date Observation Date Name Description Value Unit Range Abnormal Flag Note LastModifiedBy Organization Detail LastModifiedTime 06/15/19 XR, shoul shanelle No observ ation record ed. [id number] [id number] [place] [address], [place], [address], 08/06/2022 00:01:10 07/01/19 23 07/01/2022 MRI, shoul shanelle, w/o contr ast No observ ation record ed. [id number] [id number] [place] [address], [place], [address], 08/06/2022 00:01:10 Result Notes None recorded. Problems Name Problem SNOMED Code Status Onset Date Resolution Date Notes Provider Name and Address Organization Details Recorded Time Headache associated with sexual activity 303454279 Active 2020 Not Available [facility] 3 19:01:17 Testostero ne level below reference range 948185148 Active 2020 Not Available [facility] 3 19:01:17 Pain of right shoulder joint 5702603406952 9100 Active 2021 Not Available [facility] 3 19:01:17 Asthma 039141279 Active 2020 Not Available [facility] 3 19:01:17 Anxiety disorder 054958156 Active 2020 Not Available [facility] 3 19:01:18 Irritabili ty and anger 478130035 Active 2020 Not Available [facility] 3 19:01:18 Type 2 diabetes mellitus without complicati on 235192062 Active 2020 Not Available [facility] 3 19:01:18 Vitamin D deficiency 00899340 Active 2020 Not Available [facility] 3 19:01:18 Obese 999820070 Active 2021 Not Available [facility] 3 19:01:18 Obesity 646487496 Active 2020 Not Available [facility] 3 19:01:18 Type 2 diabetes mellitus 49177277 Active 2021 Not Available [facility] 3 19:01:18 Anxiety 24872907 Active 2020 Not Available [facility] 3 19:01:18 Hyperlipid emia 66294276 Active 2020 Not Available [facility] 3 19:01:18 Liver enzymes level above reference range 528401531 Active 2020 Not Available [facility] 3 19:01:18 Essential hypertensi on 60397507 Active 2022 Nisha Gordon NP [address], [place], [address] , [employer] 3 16:47:50 Mixed anxiety and depressive disorder 345272087 Active 2022 Nisha Gordon NP [address], [place], [address] , [employer] 3 16:49:11 Neuropathy 109014001 Active 2022 Nisha Gordon NP [address], [place], [address] , [email or web address] 3 16:58:02 Uncontroll ed type 2 diabetes mellitus 037561169 Active 2022 Nisha Gordon NP [address], [place], [address] , [employer] 3 16:23:35 Problem Notes None recorded. Procedures Surgical History Date Name Laterality Status Provider Name and Address Organization Details Recorded Time Knee completed Not Available [facility] 06/2022 23:58:58 Appendectomy completed Not Available [facility] 08/05/2022 23:58:58 Imaging Results Imaging Date Name Status LastModified by Organiz ation Details LastModified Time 07/01/2022 MRI, shoulder, w/o contrast completed [id number] [id number] [place] [address], [place], [address], 08/06/2022 00:01:10 06/15/2022 XR, shoulder completed [id number] [facility] [place] [address], [place], [address], 08/06/2022 00:01:10 Procedure Notes None recorded. Medical Equipment None Reported. Allergies No known drug allergies Medications Name Sig Start Date Stop Date Status Note LastModified by Organization Details LastModified Time fluconazo le 100 mg tablet TAKE 1 TABLET BY MOUTH DAILY FOR 5 DAYS 03/06 completed Not Available Not Available Not Available venlafaxi ne ER 37.5 mg capsule,e xtended release 24 hr TAKE 1 CAPSULE BY MOUTH EVERY DAY FOR 14 DAYS active Not Available Not Available No t Available venlafaxi ne ER 75 mg capsule,e xtended release 24 hr TAKE 1 CAPSULE BY MOUTH EVERY DAY FOR 14 DAYS active Not Available Not Available No t Available ofloxacin 0.3 % eye drops INSTILL 1 DROP IN RIGHT EYE FOUR TIMES DAILY FOR 1 WEEK 04/24 completed Not Available Not Available Not Available nystatin 100,000 unit/gram topical ointment APPLY TOPICALL Y TO THE AFFECTED AREA TWICE DAILY 03/27 completed Not Available Not Available Not Available meloxicam 15 mg tablet 04/14 completed Not Available Not Available Not Available ondansetr on HCl 4 mg tablet active Not Available Not Available No t Available prednison e 20 mg tablet TAKE 2 TABLETS BY MOUTH DAILY FOR 5 DAYS 04/24 completed Not Available Not Available Not Available venlafaxi ne ER 150 mg capsule,e xtended release 24 hr TAKE 1 CAPSULE BY MOUTH EVERY MORNING 04/22 completed may change to alternat e. Not Available Not Available Not Available sulfameth oxazole 800 mg-trimet hoprim 160 mg tablet TAKE 1 TABLET BY MOUTH TWICE DAILY FOR 10 DAYS 04/02 completed Not Available Not Available Not Available hydrocodo ne 10 mg-acetam inophen 325 mg tablet TAKE 1 TABLET BY MOUTH EVERY 6 HOURS NEEDED FOR PAIN 09/22 completed Not Available Not Available Not Available ketorolac 10 mg tablet 04/14 completed Not Available Not Available Not Available oxycodone -acetamin ophen 5 mg-325 mg tablet TAKE 1 TABLET BY MOUTH EVERY 4 HOURS NEEDED 03/27 completed Not Available Not Available Not Available alprazola m 0.25 mg tablet TAKE 1 TABLET BY MOUTH EVERY DAY NEEDED active Not Available Not Available No t Available prednisol one acetate 1 % eye drops,[employer] SHAKE LIQUID AND INSTILL 1 DROP IN RIGHT EYE FOUR TIMES DAILY FOR 7 DAYS 04/24 completed Not Available Not Available Not Available dicyclomi ne 20 mg tablet 03/27 completed Not Available Not Available Not Available benzonata te 100 mg capsule 04/24 completed Not Available Not Available Not Available cephalexi n 500 mg capsule 03/06 completed Not Available Not Available Not Available metformin 1,000 mg tablet TAKE 1 TABLET BY MOUTH TWICE DAILY WITH MEALS 04/23 completed Not Available Not Available Not Available buspirone 10 mg tablet Take 1 tablet every 12 hours by oral route as needed for 30 days. active Not Available Not Available No t Available gabapenti n 300 mg capsule TAKE 1 CAPSULE BY MOUTH EVERY DAY active Not Available Not Available No t Available diclofena c sodium 75 mg tablet,de layed release Take 1 tablet twice a day by oral route. active take with food Not Available Not Available Not Available lisinopri l 5 mg tablet TAKE 1 TABLET BY MOUTH EVERY DAY active Not Available Not Available No t Available mupirocin 2 % topical ointment APPLY TOPICALL Y TO THE AFFECTED AREA THREE TIMES DAILY FOR 10 DAYS 04/02 completed Not Available Not Available Not Available levofloxa butch 500 mg tablet TAKE 1 TABLET BY MOUTH EVERY 24 HOURS FOR 7 DAYS 06/12 completed Not Available Not Available Not Available albuterol sulfate HFA 90 mcg/actua tion aerosol inhaler INHALE 2 PUFFS BY MOUTH EVERY 4 HOURS NEEDED FOR WHEEZING active Not Available Not Available No t Available ondansetr on 4 mg disintegr ating tablet 09/22 completed Not Available Not Available Not Available fluticaso ne propionat e 50 mcg/actua tion nasal spray,[employer] USE 1 SPRAY IN EACH NOSTRIL ONCE DIRECTED 03/27 completed Not Available Not Available Not Available metformin ER 500 mg tablet,ex tended release 24 hr TAKE 2 TABLETS BY MOUTH DAILY active Not Available Not Available No t Available sertralin e 50 mg tablet TAKE 1 TABLET BY MOUTH EVERY DAY active Not Available Not Available No t Available glipizide 5 mg tablet TAKE 1 TABLET BY MOUTH TWICE DAILY active Not Available Not Available No t Available amoxicill in 875 mg-potass ium clavulana te 125 mg tablet TAKE 1 TABLET BY MOUTH TWICE DAILY FOR 10 DAYS 04/14 completed Not Available Not Available Not Available amoxicill in 500 mg-potass ium clavulana te 125 mg tablet TAKE 1 TABLET BY MOUTH EVERY 12 HOURS FOR 10 DAYS 06/12 completed Not Available Not Available Not Available aripipraz ole 5 mg tablet Take 1 tablet every day by oral route. active Not Available Not Available No t Available rosuvasta tin 10 mg tablet TAKE 1 TABLET BY MOUTH EVERY DAY active Not Available Not Available No t Available metformin ER 1,000 mg tablet,ex tended release 24hr (osmotic) 06/12 completed Not Available Not Available Not Available metformin ER 1,000 mg 24 hr tablet,ex tended release (gastric reten.) Take 1 tablet every day by oral route. active Not Available Not Available No t Available Ozempic 0.25 mg or 0.5 mg (2 mg/1.5 mL) subcutane ous pen injector 09/22 completed Not Available Not Available Not Available Rybelsus 7 mg tablet TAKE 1 TABLET BY MOUTH EVERY DAY active Not Available Not Available No t Available Rybelsus 3 mg tablet TAKE 1 TABLET BY MOUTH EVERY DAY active Not Available Not Available No t Available Ozempic 1 mg/dose (4 mg/3 mL) subcutane ous pen injector INJECT 1MG SUBCUTAN EOUSLY EVERY WEEK 04/14 completed Not Available Not Available Not Available Ozempic 2 mg/dose (8 mg/3 mL) subcutane ous pen injector Inject 2 mg every week by subcutan eous route. 03/27 completed 01/21/22 wants 1 mg as 2 mg hurting stomach. Not Available Not Available Not Available Vitals Date Recorded Body mass index (BMI) Body height Oxygen saturation Oxygen saturation in Arterial blood by Pulse oximetry Heart rate Respiratory rate Body temperature Body weight Systolic blood pressure Diastolic blood pressure Provider Name and Address Organization Details Last Updated DateTime 2 35.5 kg/m2 182.88 cm 98 % 98 % 76 /min 16 /min 97.3 [degF] 785952. 2 g 124 mm[Hg] 82 mm[Hg] Not Available [facility] 3 23:59:41 Date Recorded Body mass index (BMI) Body height Body weight Provider Name and Address Organization Details Last Updated DateTime 06/15/2022 36.8 kg/m2 180.34 cm 688084.39 g Not Available [facility] 08/05/2022 23:59:43 Date Recorded Body height Provider Name an d Address Organization Details Last Updated DateTime 07/09/2022 180.34 cm Not Available [facility] 3 23:59:41 Date Recorded Body height Body mass index (BMI) Body weight Body temperature Heart rate Respiratory rate Oxygen saturation Oxygen saturation in Arterial blood by Pulse oximetry Pain severity - 0-10 verbal numeric rating [Score] - Reported Systolic blood pressure Diastolic blood pressure Provider Name and Address Organization Details Last Updated DateTime 3 180.34 cm 36.7 kg/m2 571474. 24 g 96.98 [degF] 92 /min 16 /min 96 % 96 % 0 118 mm[Hg] 68 mm[Hg] Nisha Vann RN [facility] [place] 3 17:26:21 Date Recorded Body height Systolic blood pressure Diastolic blood pressure Provider Name and Address Organization Details Last Updated DateTime 04/14/2023 180.34 cm 144 mm[Hg] 92 mm[Hg] Nisha Gordon NP [address] [place] [address], [facility] [address], [place], [address], MD [employer] [facility] [place] 04/14/2023 16:47:40 Date Recorded Body mass index (BMI) Body weight Body temperature Heart rate Oxygen saturation Oxygen saturation in Arterial blood by Pulse oximetry Respiratory rate Systolic blood pressure Diastolic blood pressure Provider Name and Address Organization Details Last Updated DateTime 3 36.6 kg/m2 175165. 35 g 96.4 [degF] 83 /min 96 % 96 % 16 /min 166 mm[Hg] 106 mm[Hg] Nisha Vann RN [facility] [employer] 3 16:25:59 Social History Question Answer Notes LastModified by Organizat ion Details LastModified Time Tobacco Smoking Status Never Smoker Not Available [facility] 08/05/2022 23:58:42 Do You Have An Advance Directive? No [id number] Information not available 08/05/2022 What Is Your Level Of Alcohol Consumption? Occasional MIGRATION.013432 [id number] Information not available 08/05/2022 Do You Wear A Helmet When Biking? No MIGRATION.441426 8743 Information not available 08/05/2022 Is Blood Transfusion Acceptable In An Emergency? Yes Information not available 09/22/2022 What Is Your Level Of Caffeine Consumption? Moderate Information not available 09/22/2022 What Is Your Code Status? Full Code Information not available 09/22/2022 In The 14 Days Before Symptom Onset, Have You Had Close Contact With A Laboratory-confir med COVID-19 While That Case Was Ill? No [id number].[id number] Information not available 08/05/2022 In The 14 Days Before Symptom Onset, Have You Had Close Contact With A Person Who Is Under Investigation For COVID-19 While That Person Was Ill? No MIGRATION.607251 3623 Information not available 08/05/2022 Are You Currently Employed? Yes Information not available 09/22/2022 What Type Of Diet Are You Following? 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 No MIGRATION.706120 2748 Information not available 08/05/2022 Are There Any Guns Present In Your Home? No MIGRATION.734665 3400 Information not available 08/05/2022 Do You Use Insect Repellent Routinely? Yes MIGRATION.573878 5606 Information not available 08/05/2022 Where Do You Live? [facility] Information not available 04/14/2023 Are You Following A Low Salt Diet? Yes MIGRATION.673654 5999 Information not available 08/05/2022 Do You Have A Medical Power Of Editorial Assistant? No MIGRATION.889802 6496 Information not available 08/05/2022 Do You Have Any Pets? Yes MIGRATION.290114 3747 Information not available 08/05/2022 What Is Your Relationship Status? MIGRATION.122455 1687 Information not available 08/05/2022 Do You Use Your Seat Belt Or Car Seat Routinely? No MIGRATION.771006 4749 Information not available 08/05/2022 Do You Have Smoke And Carbon Monoxide Detectors In Your Home? Yes MIGRATION.407258 0087 Information not available 08/05/2022 Are You Passively Exposed To Smoke? No MIGRATION.623199 6433 Information not available 08/05/2022 Are There Any Smokers In Your House? No MIGRATION.356986 3947 Information not available 08/05/2022 Do You Participate In Social Media? No MIGRATION.368275 9064 Information not available 08/05/2022 Do You Feel Stressed (tense, Restless, Nervous, Or Anxious, Or Unable To Sleep At Night)? [id number] Information not available 09/22/2022 Do You Use Any Illicit Or Recreational Drugs? No MIGRATION.604048 5739 Information not available 08/05/2022 Do You Use Sunscreen Routinely? No MIGRATION.186123 5845 Information not available 08/05/2022 Has Tobacco Cessation Counseling Been Provided? No MIGRATION.417752 1021 Information not available 08/05/2022 Have You Recently Traveled Abroad? No MIGRATION.491453 8498 Information not available 08/05/2022 Do You Have Any Dietary Restrictions? Yes MIGRATION.583722 4170 Information not available 08/05/2022 Do You Or Have You Ever Used Any Other Forms Of Tobacco Or Nicotine? No MIGRATION.897825 3772 Information not available 08/05/2022 Sex: Male Functional Status Question Answer Note LastModified by Organizat ion Details LastModified Time What is your exercise level? Occasional [id number] Information not available 08/05/2022 Mental Status None recorded. Family History Relationship Description Onset Age of this Age Resolved Age Notes LastModified by Organization Details LastModified Time Father No current problems or disability [id number] Not available 08/05/2022 23:59:01 Father Heart disease MIGRATION.309 [id number] Not available 08/05/2022 23:59:01 Mother No current problems or disability MIGRATION.899 [id number] Not available 08/05/2022 23:59:01 Maternal Grandfather Heart disease MIGRATION.682 [id number] Not available 08/05/2022 23:59:01 Maternal Grandfather Family history of stroke MIGRATION.746 [id number] Not available 08/05/2022 23:59:01 Maternal Grandfather Diabetes mellitus MIGRATION.914 [id number] Not available 08/05/2022 23:59:01 Maternal Grandmother Heart disease MIGRATION.897 [id number] Not available 08/05/2022 23:59:01 Maternal Grandmother Family history of stroke MIGRATION.704 [id number] Not available 08/05/2022 23:59:01 Unspecified Relation Hypertensive disorder EVERYO NE MIGRATION.033 [id number] Not available 08/05/2022 23:59:01 Medical History Condition Response BLINDNESS N RHEUMATIC FEVER N KIDNEY STONES N BLADDER PROBLEMS N MRSA N OTHER # 1 N POLIO N LUNG DISEASE/DISORDER N HISTORY OF DRUG ABUSE N COPD N RADIATION / CHEMOTHERAPY N Other # 2 N BLOOD DISEASES N SURGERY N EAR OR HEARING PROBLEMS N MUMPS N SHINGLES N FEMALE PROBLEMS / INFECTIONS N DEPRESSION (INCLUDING POST ) N BOWEL PROBLEMS N STROKE/TIA N THYROID DISEASE N ULCERS N BENIGN PROSTATIC HYPERPLASIA N MEASLES N CERVICALGIA N HYPOTENSION N TB SKIN TEST N MYOCARDIAL INFARCTION N OBESITY N PARAPELGIA N GERD/NAUSEA N ANEURYSM N URINARY/BLADDER/KIDNEY PROBLEMS N CORONARY ARTERY DISEASE (CAD) N MENIERE'S DISEASE N ADDICTION CONCERNS N ENDOMETRIOSIS N USE OF BLOOD THINNERS N SKIN PROBLEMS N EMPHYSEMA N GASTROINTESTINAL DISORDER N MUSCLE,JOINT OR BONE PROBLEMS N GASTROINTESTINAL BLEEDING N BLOOD CLOTS N ASTHMA N CATARACTS N ERECTILE DYSFUNCTION N GI PROBLEMS N CHF N Low Testosterone N NEUROPATHY N INFERTILITY N AIDS/HIV N FRACTURES N CHEMOTHERAPY / RADIATION N VISION/EYE PROBLEMS N LIVER DISEASE N MALE HYPOGONADISM N HYPERTENSION N TOURETTE'S N ANXIETY DISORDER Y BLOOD TRANSFUSION N ANEMIA/BLOOD DISORDER N CHRONIC EAR INFECTIONS N BRONCHITIS N TUBERCULOSIS N GLAUCOMA N FOOT PROBLEM N DIVERTICULITIS N SLEEP APNEA N CHICKENPOX N ALLERGIES/HAYFEVER N INFECTIOUS DISEASE N PROSTATE N HEART ARRHYTHMIA N INSOMNIA N HIGH CHOLESTEROL / HYPERLIPIDEMIA N HYPERTHYROIDISM N EYE PROBLEMS N EATING DISORDER N EDEMA N CHRONIC PAIN SYNDROME N CONSTIPATION N CAROTID BLOCKAGE N BACK / NECK PROBLEMS N HAVE YOU BEEN HOSPITALIZED OR SEEN IN [facility] ER IN THE PAST YEAR ? N ATHEROSCLEROSIS N BREAST PROBLEMS N DIALYSIS N ECZEMA N FIBROMYALGIA N OSTEOPOROSIS N ARTHRITIS N NO SIGNIFICANT PAST MEDICAL HISTORY N APPENDICITIS N DIABETES, TYPE Y BAD TEETH N HEARTBURN / REFLUX N ADD/ADHD N AUTISM SPECTRUM DISORDER (ASD) N HEPATITIS / LIVER DISEASE N PULMONARY DISEASE N GOUT N SLEEP DISORDER N ALZHEIMER'S DISEASE N PAIN N HERPES N DEMENTIA N SEIZURES/EPILEPSY N HEADACHES/MIGRAINES N VASCULAR DISEASE N PACEMAKER N DIZZINESS N KIDNEY DISEASE N HEART DISEASE/HEART PROBLEMS N SCARLET FEVER N MULTIPLE SCLEROSIS N MENTAL DISORDER/ILLNESS N DEVELOPMENTAL OR BEHAVIORAL DISORDERS N CARDIAC ARRHYTHMIA N CANCER: SPECIFY N PNEUMONIA N Gall Stones N ATRIAL FIBRILLATION N PULMONARY EMBOLISM N AUTOIMMUNE DISEASE N Immunizations Vaccine Type Date Status Note Provider Nam e and Address Organization Details Recorded Time Tdap 04/02/2021 completed Not Available [facility] 01/25/2023 19:01:18 Past Encounters Encounter ID Performer Location Encounter Start Date Encounter Closed Date Diagnosis/Indication Diagnosis SNOMED-CT Code Diagnosis ICD10 Code Diagnosis Note [id number] Neeraj Merchant MD [address] [address] 04/02/2021 00:00:00 04/02/2021 17:05:42 [id number] Neeraj Merchant MD [address] [address] 04/23/2021 00:00:00 04/23/2021 19:00:08 [id number] Neeraj Merchant MD [address] [address] 05/13/2021 00:00:00 05/13/2021 15:58:11 [id number] Neeraj Merchant MD [address] [address] 06/12/2021 00:00:00 06/12/2021 18:21:28 [id number] Neeraj Merchant MD [address] [place] [address] 06/25/2021 00:00:00 06/25/2021 10:17:14 [id number] Neeraj Merchant MD [facility] [address] [place] [address] 09/04/2021 00:00:00 09/04/2021 10:47:50 [id number] Neeraj Merchant MD [facility] [address] [place] [address] 10/15/2021 00:00:00 10/15/2021 15:48:13 [id number] Nisha Gordon NP [facility] [address] [place] [address] 12/16/2021 00:00:00 12/16/2021 18:23:53 [id number] Nisha Gordon NP [facility] [address] [place] [address] 01/16/2022 00:00:00 01/16/2022 18:12:18 [id number] Nisha Gordon NP [facility] [address] [place] [address] 03/06/2022 00:00:00 03/06/2022 14:48:28 [id number] Neeraj Merchant MD [facility] [address] [place] [address] 03/27/2022 00:00:00 03/27/2022 17:01:42 [id number] Neeraj Merchant MD [facility] [address] [place] [address] 04/24/2022 00:00:00 04/24/2022 12:26:23 [id number] Neeraj Merchant MD [facility] [address] [place] [address] 06/02/2022 00:00:00 06/02/2022 12:37:29 [id number] Herson Dowell MD [facility] [address] [place] [address] 06/15/2022 00:00:00 06/15/2022 17:22:22 [id number] Herson Dowell MD [facility] [address] [place] [address] 07/09/2022 00:00:00 07/09/2022 10:24:29 [id number] Nisha Gordon NP [address] [address] 09/22/2022 17:16:23 09/22/2022 17:58:25 Adult health examination [id number] Z00.00 Encouraged well balanced meals, active lifestyle, and routine vision and dental appts. Type 2 charlie betes mellitus without complication 864025595 E11.9 BMP and A1C needed in November 2022.Ozemp ic 1 mg weekly.Met formin ER 500 mg, 2 tab po daily.Glip izide 5 mg po bid. [id number] Nisha Gordon NP [facility] [address] 04/14/2023 15:48:24 04/14/2023 17:45:07 Anxiety disorder [id number] F41.9 Venlafaxin e ER 150 mg po daily.May change to zoloft or prozac.Was smoking MJ but no longer can with employer. Had been on buspar but made things worse.[employer] pro- worked until changed to something else, but went back to it without relief. Asthma [id number] J45.90 9 Albuterol HFA Hyperlipidemia 86010881 E78.5 Obese 429922975 E66.9 Diet and exercise encouraged and recommende d. Type 2 charlie betes mellitus without complication [id number] E11.9 BMP and A1C needed in November 2022.Ozemp ic 1 mg weekly.Met formin ER 500 mg, 2 tab po daily.Glip izide 5 mg po bid. Essential hypertension 32431182 I10 Lisinopril 5 mg po daily. Mixed anxi ety and depressive disorder [id number] F41.8 Venlafaxin e ER 150 mg po daily. Had been on buspar but made things worse.[employer] pro- worked until changed to something else, but went back to it without relief. Type 2 charlie betes mellitus 85047907 E11.9 Metformin ER 500 mg po daily.Glip izide 5 mg po bid. Neuropathy [id number] G62 .9 Gabapentin 300 mg po nightly Health Concerns Section Related Observation LastModified by Organization Detai ls LastModified Time None Recorded Concern Status LastModified by Organization Details LastModified Time None Recorded Advance Directives Directive N: Payers Encounter Date Sequence Insurance Name Policy Number Policy Domingo Covered Member ID Domingo Member ID Guarantor Name 09/22/2022 1 [place] [id number] Arron Tyler [id number] Arron Tyler 09/22/2022 2 [facility] [id number] Arron Tyler [id number] Arron Tyler 04/14/2023 1 [place] [id number] Arron Tyler [id number] Arron Tyler Notes Date Note Type Note Provider Name and Address Organization Details Recorded Time 09/22/2022 text/html Here for chapito s visit. Still back and forth if he wishes to have bariatric surgery. Planning to get more activity in routine life with walking and getting therapy for right shoulder. Still pain in anterior right shoulder. DM- fasting about 90-150. average 130. A1C prior to surgery was controlled 7.4 on August 10, 2022. Nisha Gordon NP [address] [place] [address] [address], [place], [address], [facility] [id number] 09/22/2022 17:57:01 04/14/2023 text/html Here for follow up- hasn't been in for a while. DM- Doesn't check blood sugar at home. States he can usually tell when it gets high because he starts peeing a lot. Denies any episodes of hypoglycemic symptom. States he often forgets the second metformin at the end of the day. Has tried reminders but nothing works - he always forgets. Got blood work done in August of this year prior to shoulder surgery. Anxiety- Venlafaxine isn't really working well. Interested in other options. Maybe interested in seeing a therapist. 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 Feeling irritable, doesn't like job, grumpy, putting strain in marriage- going to see counselor on Wednesday.Over sleeping. Albuterol inhaler - needs a refill. Denies frequent use- maybe a couple times a month. Exercise - states that he gets a lot of physical activity at work. Works out in [employer] - off an on. Diet - states that he still drinks soda but always zero sugar. Eats lots of meat - steak, pork chops, etc. Protein powder (when going to the gym).Sleep - Depends on the day / stressors in life. States that he gets about 5 hours of sleep a night. Stays asleep well after falling asleep. Declines flu shot today. Needs refill for medications. Pain in right sciatica and left foot toes. Comes and goes.Has some tremor at rest in left hand Nisha Gordon NP [address] [facility], [place], [address], [place] [facility] [employer] 04/14/2023 17:40:31
--- OUTSIDE RECORDS SUMMARY | 2024-10-14 10:45 | XMS_ITS | Continuity of Care Document ---
Author Organization [facility] Address [address] [facility] [address] [place] [address] Phone Care Team Providers Care Coding Analyst Name Role Phone Unavailable Unavailable Unavailable Advance Directives Directive Yes / No Effective Date File Name No Information Encounters Encounter Description Practice Location Reason(s) For Visit Diagnoses Date Provider Providers Copied on Encounter [facility], [address] [place] [address] [address], [place], [place], [id number], [place] tel:[phone] [facility] No Information 0 No Information Family History Family Member Type Diagnosis Age At Onset No Information Payers Payer name Insurance type Covered alliance party ID Authoriza tion(s) No Information Social History Type Description Quantity Date Captured Comments Sex Male Smoking Status No Information Chief Complaint And Reason For Visit No Information Reason For Referral Reason For Referral No Information History Of Present Illness Encounter Date Complaint History Of Prese nt Illness No Information Functional Status Date Functional Assessmen t No Information Instructions Date Instruction Additional Infor mation No Information Assessments Type Assessment Date No Information Patient Care Teams Name Effective Dates (start - stop) Status Members No Information
--- OUTSIDE RECORDS SUMMARY | 2024-10-14 10:45 | XMS_ITS | Encounter Summary ---
Author Organization [facility] Facility Care Team Providers Care Concrete Placement Equipment Operator Name Role Phone Augustus Mart MD Primary Care Provider [phone] Greyson Valdez SCULPTURE INSTRUCTOR Unavailable [phone] Greyson Valdez SCULPTURE INSTRUCTOR Unavailable [phone] Tisha Koch NP Primary Care Provider + Encounter Details Date Type Department Care Team (Latest Contact Info) Description 06/04/2017 Orders Only [facility] Provider, MD Sunil [address] [place] [id number] Social History Tobacco Use Types Packs/Day Years Used Date Smoking Tobacco: Never Assessed Sex and Gender Information Value Date Recorded Sex Assigned at Not on file Legal Sex Male 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 us Historical Provider Final Res ult documented in this encounter Visit Diagnoses Not on filedocumented in this encounter Additional Health Concerns Infection Onset Date Last Indicated Resolved Time COVID: Suspected 04/17/2022 04/17/2022 04/17/2022 5:21 PM [employer]REL ENDSHAKER ADJUSTER Influenza, adult 04/17/2022 04/17/2022 04/24/2022 3:05 AM BARREL ENDSHAKER ADJUSTER documented as of this encounter Care Teams Concrete Placement Equipment Operator Relationship Specialty Start Date End Date Augustus Mart MD PCP - General Family Medicine 12/23/18 03/29/22 Tisha Koch NP [address] [place] [address] [address] [place] [address] PCP - General Nurse Practitioner 03/30/22 Greyson Valdez LPN [address] [place] [address] [address] [place] [address] Licensed Practical Nurse 08/14/2008/28 Greyson Valdez LPN [address] [place] [address] [address] [place] [address] [employer] [facility] Senior Functional Analyst 04/01/21 04/16/21 documented as of this encounter
[2024-10-14 11:37] LABS: Hematocrit 43.6 % (42.0-52.0); Hemoglobin 15.3 g/dL (14.0-18.0); Mean Corpuscular HGB Conc 35.1 g/dl (32-36); Mean Corpuscular Volume 88.3 fl (80-100); Mean Platelet Volume 11.6 fl (7.4-10.4); Platelet Count Result 161 k/mm3 (150-375); Red Blood Count 4.94 M/mm3 (4.6-6.20); Red Cell Distribution Width 13.3 % (11.5-14.5); White Blood Count 4.8 K/mm3 (4.5-10.0)
[2024-10-14 11:52] LABS: Alanine Aminotransferase 35 U/L (6-50); Albumin Level 4.6 g/dL (3.5-5.1); Alkaline Phosphatase 53 U/L (38-126); Anion Gap 6 mmol/L (4-12); Aspartate Amino Transferase 31 U/L (17-59); Bilirubin,Total 0.6 mg/dL (0.2-1.3); Blood Urea Nitrogen 14 mg/dL (9-20); Calcium 9.2 mg/dL (8.4-10.2); Carbon Dioxide 26 mmol/L (22-30); Chloride 110 mmol/L (98-107); Cholesterol 257 mg/dL (0-200); Estimated Glomerular Filt Rate > 60; Glucose 136 mg/dL (65-110); HDL Direct 39 mg/dL; Potassium 3.9 mmol/L (3.4-5.0); Sodium 142 mmol/L (137-145); Triglycerides 113 mg/dL (<150)
[2024-10-14 11:56] LABS: Hemoglobin A1C 5.9 % (<5.7)
[2024-10-14 12:03] LABS: LDL Cholesterol Direct 164 mg/dL
[2024-10-14 12:04] LABS: Creatinine Urine 208.5 mg/dL
[2024-10-14 12:09] LABS: MALB Creatinine Ratio 4.8 mg/g (0-30)
[2024-10-18 03:18] LABS: TSH QUEST 1.01 mIU/L (0.40-4.50)
== END 2024-10-14 10:40 | disposition home or self-care (01) ==
LOC: ANHLAB 10:42
PROVIDERS: PCP Nurse Practitioner Family; Visit Provider Nurse Practitioner Family
DX: E78.2 Mixed hyperlipidemia (principal); E11.9 Type 2 diabetes mellitus without complications; Z13.0 Encounter for screening for diseases of the blood and blood-forming organs and certain disorders involving the immune mechanism; Z13.29 Encounter for screening for other suspected endocrine disorder
CPT/HCPCS: 36415; 80053; 80061; 82043; 83036; 84439; 84443; 84480; 85027; 86376